=== PATIENT | male | born 1980 | race Caucasian/White ===

== ENCOUNTER 2018-07-12 11:42 | Emergency (ER) | END 2018-07-12 17:18 | disposition home or self-care (01) ==

== ENCOUNTER 2018-12-03 09:42 | Emergency (ER) | payer OTHER ==
[~2018-12-03] VITALS: Ht 175.3 cm; Wt 95.7 kg
[~2018-12-03 09:42] MED LIST: AZIT250T13 PO; LORA-441 PO; MED4DP PO; METH10TA2 PO; METH750T2 PO; TRAM50TA2 PO
[2018-12-03 09:44] VITALS: Ht 175.3 cm; Wt 95.7 kg
[2018-12-03] MEDS ORDERED: METHADONE 10 MG TAB PO ONE (10:30)
[2018-12-03 10:34] VITALS: BP 122/80; PULSE 89; RESP 20
--- NOTE | 2018-12-03 13:35 | ERD ---
ER Documentation Chief Complaint Chief Complaint shortness of breath, epigastric pain 4 days - hx of stage 4 gastric cancer HPI Patient is a 38-year-old male with stage IV gastric cancer who presents for abdominal pain. He says that he has had his methadone dose decreased recently. He is having epigastric pain and says "I need my medication". He says "I just need 80 mg of methadone and I will be fine". Upon review of old medical records this is the patient's ninth visit to the ER since 2012. He was admitted recently on November 21. Review of the emergency department information exchange system shows visits to 4 separate emergency departments. ROS All systems reviewed and are negative except as per history of present illness. Medications Home Meds Active Scripts Methylprednisolone* (Medrol* DOSE PACK) 4 Mg/Dose-Pack Tab.ds.pk, 4 MG PO . DIRECTED, #1 PACKET Prov:ESTEPHANIE HERNANDEZ 11/22/18 Tramadol HCl (Tramadol HCl) 50 Mg Tablet, 50 MG PO Q6H PRN for PAIN, #60 TAB Prov:MARYPadminiCHEN Servin 11/22/18 Lorazepam* (Ativan*) 0.5 Mg Tablet, 1 MG PO Q8H PRN for ANXIETY, #30 TAB Prov:MARYESTEPHANIE Servin 11/22/18 Methocarbamol* (Methocarbamol*) 750 Mg Tablet, 750 MG PO Q8H PRN for MUSCLE SPASMS, #30 TAB Prov:ESTEPHANIE HERNANDEZ 11/22/18 Azithromycin* (Azithromycin*) 250 Mg Tablet, 250 MG PO DAILY for 4 Days, TAB start on 11/23 Prov:ESTEPHANIE HERNANDEZ 11/22/18 Reported Medications Methadone Hcl* (Methadone*) 10 Mg Tab, 70 MG PO DAILY, TAB PER PT AND RELATIVE GOES TO [facility].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 11/21/18 Allergies Allergies: Coded Allergies: No Known Allergy (Unverified , 11/21/18) PMhx/Soc History of Surgery: No Anesthesia Reaction: No Hx Neurological Disorder: No Hx Respiratory Disorders: No Hx Cardiac Disorders: No Hx Psychiatric Problems: No Hx Miscellaneous Medical Probl: Yes Hx Alcohol Use: Yes Hx Substance Use: Yes Hx Tobacco Use: Yes Smoking Status: Never smoker FmHx Family History: No diabetes Physical Exam Vitals Vital Signs Date Temp Pulse Resp B/P (MAP) Pulse Ox O2 O2 Flow FiO2 Time Delivery Rate 12/03/18 98.3 89 20 122/80 98 Room Air 10:34 (94) 12/03/18 97.9 128 28 125/88 88 09:44 (100) Physical Exam Const: Mild distress Head: Atraumatic Eyes: Normal Conjunctiva ENT: Normal External Ears, Nose and Mouth. Neck: Full range of motion. No meningismus. Resp: Clear to auscultation bilaterally Cardio: Tachycardic rate without murmur Abd: Epigastric tenderness to palpation without rebound or guarding Skin: No petechiae or rashes Back: No midline or flank tenderness Ext: No cyanosis, or edema Neur: Awake and alert Psych: Normal Mood and Affect Results 24 hrs Current Medications Medications Dose Sig/Amadou Start Time Status Last (Trade) Ordered Route PRN Stop Time Admin Dose Reason Admin Methadone 80 mg ONCE ONCE 12/03/18 DC 12/03/18 HCl PO 10:30 10:26 (Methadone) 12/03/18 10:31 Procedures/MDM Patient is a 38-year-old male who presents with acute on chronic abdominal pain. He appears to be in withdrawal at this point from methadone. I will give him 80 mg of methadone at this time. The patient does not want to stay or have any further workup at this time. I believe outpatient management is appropriate but he should follow-up with his primary doctor and likely would benefit from pain management. I would not give him narcotic medicines in the future. He would not get a prescription for narcotics. Departure Diagnosis: Primary Impression: Chronic pain Chronic pain type: chronic pain syndrome Qualified Codes: G89.4 - Chronic pain syndrome Condition: Fair Patient Instructions: Chronic Pain Referrals: Your doctor Additional Instructions: Call your primary care doctor TOMORROW for an appointment during the next 1-2 days.See the doctor sooner or return here if your condition worsens before your appointment time. DEBBIE RUIZ MD Dec 03, 2018 13:34
== END 2018-12-03 10:36 | disposition home or self-care (01) ==
LOC: E/R 09:42
DX: G89.4 Chronic pain syndrome (principal); Z87.891 Personal history of nicotine dependence; Z85.028 Personal history of other malignant neoplasm of stomach
CPT/HCPCS: Z7502; Z7610; 99283